=== PATIENT | male | born 1965 | race Caucasian/White ===

== ENCOUNTER 2020-10-26 16:32 | Inpatient (IN) ==
[2020-10-26] MEDS ORDERED: POLYETHYLENE (MIRALAX) 17 GM PACK PO PRN (17:08)
[2020-10-26] MEDS ORDERED: ACETAMINOPHEN 325 MG TAB PO PRN (17:08)
[2020-10-26] MEDS ORDERED: PATIENT'S ALLERGY INFO NEEDS ENTERED SCH (17:45)
[2020-10-26 18:50] LABS: Basophils # (auto) 0.07 K/uL (0-0.2); Basophils % (auto) 0.7 %; Eosinophils # (auto) 0.26 K/uL (0-0.5); Eosinophils % (auto) 2.5 %; Hematocrit (blood only) 37.5 % (42-52); Hemoglobin 12.3 g/dL (14.0-18.0); Immature Granulocytes # (auto) 0.04 K/uL (0.00-0.02); Immature Granulocytes % (auto) 0.4 %; Lymphocytes # (auto) 3.11 K/uL (1.2-3.4); Lymphocytes % (auto) 29.3 %; Mean Corpuscular Hemoglobin 30.1 pg (25-34); Mean Corpuscular Hgb Conc 32.8 g/dL (32-36); Mean Corpuscular Volume 91.7 fL (80-100); Mean Platelet Volume 9.4 fL (7.4-10.4); Monocytes # (auto) 1.04 K/uL (0.11-0.59); Monocytes % (auto) 9.8 %; Neutrophils # (auto) 6.08 K/uL (1.4-6.5); Neutrophils % (auto) 57.3 %; Platelet Count 257 K/uL (130-400); RDW Coefficient of Variation 13.6 % (11.5-14.5); RDW Standard Deviation 45.1 fL (36.4-46.3); Red Blood Count 4.09 M/uL (4.7-6.1)
--- NOTE | 2020-10-26 18:58 | History & Physical Report ---
Date of Service October 26, 2020 Assessment & Plan (1) Osteomyelitis of great toe of right foot: Septic arthritis Right 1st MTP Pt is 55 y/o M with PMH HTN, dyslipidemia, gout, obesity, alcohol use presented to [facility] as direct admission for right great toe edema and erythema x3 weeks, found to have osteomyelitis, septic arthritis. Treated with Keflex and Doxycycline x 2 weeks. Denies fever/chills,N/V, discharge. Outpatient CT right foot with contrast: findings consistent with osteomyelitis o f the first metatarsal and hallux proximal phalanx, with septic arthritis of first MTP joint and a small adjacent abscess Pt afebrile, P: 106, BP: 160/92, R: 22, 97% on RA. No leukocytosis -Blood cultures pending -Zosyn, daptomycin -MRSA swab -IVF -Ortho consult -CBC, BMP in am -Outpatient images being pushed to [facility] radiology (2) HTN (hypertension): -Continue losartan (3) Dyslipidemia: -Continue fenofibrate (4) Alcohol use: Reports drinks 5 beers daily. Last drink 1500 on 10/26/2020. Denies history of alcohol withdrawal -Monitor for alcohol withdrawal -Alcohol withdrawal protocol with gabapentin -Thiamine, folic acid, multivitamin daily (5) Gout: -Continue allopurinol DVT Prophylaxis -SCDs Follows with Lili Keating PA-C for routine care Pt was seen and care coordinated with Dr Mayberry. See addendum Admission and Anticipated Discharge Date Admission Date: October 26, 2020 History of Present Illness Chief Complaint: Right great toe edema Primary Care Provider: Lili Keating PA-C Pt is 55 y/o M with PMH HTN, dyslipidemia, gout, obesity, alcohol use presented to [facility] as direct admission for right great toe edema and erythema x3 weeks. Has been following up outpatient with PCP for right great toe edema with edema extending to right leg. He was initially prescribed Keflex however did not take. Has been taking Keflex and doxycycline for the past 2 weeks. Initial x-ray of right foot on 10/16/2020 with no bony changes of osteomyelitis, no soft tissue gas. Patient reports some decreased edema and erythema to toe and leg. Denies any drainage or discharge. Reports had a fall onto right foot approximately one month ago but denies other injury or open wounds. Followed up with PCP today and had CT right foot with contrast with findings consistent with osteomyelitis of the first metatarsal and hallux proximal phalanx, with septic arthritis of first MTP joint and a small adjacent abscess. Drinks 5 beers a day. Last drink 3:00PM today. Denies history alcohol withdrawal. Denies fever/chills, diaphoresis, N/V/D/C, ESTEBAN, dizziness, vision changes, neck pain, CP, SOB, orthopnea, palpitations, cough, sore throat, choking, otalgia, rhinorrhea, abdominal pain, paresthesias, weakness, extremity weakness, other extremity edema, other rashes, urinary symptoms. Allergies Allergy/AdvReac Type Severity Reaction Status Date / Time Sulfa (Sulfonamide Allergy Rash Verified 10/26/20 18:23 Antibiotics) Home Medications Medication Instructions Recorded Confirmed Type allopurinol 300 mg PO DAILY 10/26/20 10/26/20 History doxycycline hyclate 100 mg PO BID 10/26/20 10/26/20 History fenofibrate nanocrystallized 145 mg PO DAILY 10/26/20 10/26/20 History losartan 50 mg PO DAILY 10/26/20 10/26/20 History Past Med/Surg History Medical History (Updated 10/26/20 @ 19:41 by Ariana Osborne PA-C) Alcohol use Dyslipidemia Gout HTN (hypertension) Obesity Surgical History (Updated 10/26/20 @ 19:36 by Ariana Osborne PA-C) History of cataract surgery Hx of LASIK Family History (Updated 10/26/20 @ 19:37 by Ariana Osborne PA-C) Grandfather (Maternal) Lung cancer Grandmother (Paternal) Diabetes Father Stroke Social History (Updated 10/26/20 @ 19:37 by Ariana Osborne PA-C) Smoking Status: Never smoker Tobacco Type: Smokeless Tobacco (Dip or Chew) Second Hand Exposure: No; Do You Dip or Chew Tobacco: Yes; Tobacco Cessation Education Requested by Patient: No Hx Alcohol Use: Yes (5 beers a day) Alcohol type: beer Hx Substance Use: No Preferred Language: Belarusian Communication Ability: Effective Global Chief Experience Officer Required: No Beliefs That Will Affect Care: None Current Living Situation: Alone Other Information That Helps Us Care for You: No Feels Safe at Home: Yes Safety Concerns: Feels Safe At This Time Review of Systems Review of Systems: All systems reviewed & are unremarkable except as noted in HPI & below Physical Exam Physical Exam: General: no distress, obese Head: normocephalic, atraumatic Eyes: conjunctiva non-injected, anicteric ENT: normal inspection external ears, nose, mucous membranes moist Neck: supple, trachea midline Lungs: clear, no respiratory distress, no wheezing/rhonchi/rales CV: RRR, no murmur Abd: protuberant, normal BS, soft, non-tender Ext: RLE: +edema, +erythema and edema right foot, greatest over right great toe, medial aspect toe with eschar without discharge, no significant tenderness to palpation, LLE without edema. sensation to light touch intact Neuro: A&O x 3, no focal deficits noted, normal affect Skin: warm, dry Results & Data Results & Data ([facility]) Vital Signs (Past 12 Hours) Vital Signs Temp Pulse Resp BP Pulse Ox 10/26/20 18:32 36.9 C 106 H 22 160/92 H 97 Laboratory Results Short CBC 10/26/20 Range/Units 18:13 WBC 10.60 (4.8-10.8) K/uL Hgb 12.3 L (14.0-18.0) g/dL Hct 37.5 L (42-52) % Plt Count 257 (130-400) K/uL BMP 10/26/20 18:13 Sodium 138 Potassium 3.6 Chloride 105 Carbon Dioxide 27 BUN 13 Creatinine 0.82 Glucose 93 Calcium 9.1 Liver Function 10/26/20 Range/Units 18:13 Total Bilirubin 0.4 (0.2-1) mg/dl AST 18 (15-37) U/L ALT 25 (12-78) U/L Alkaline Phosphatase 107 (45-117) U/L Albumin 3.2 L (3.4-5.0) gm/dl ECG Rate (beats per minute): 106 Rhythm: sinus tachycardia Code Status & VTE Plan VTE Prophylaxis Plan VTE Prophylaxis will be ordered: Yes Supervising Physician Co-Signing Physician Notes Care coordinated with Ariana Osborne PA-C. Agree with above note. Patient seen and examined. Please refer to her notes for full details. Vital signs reviewed. Physical exam: General exam: Alert and oriented. Not in acute distress. CVS: S1 and S2 heard, regular rate and rhythm, no murmurs. RS: Clear to auscultation, no wheezing or crackles. ABD: Soft, bowel sounds present, nontender, no distention. CRITICAL CARE UNIT MANAGER: Nonfocal. EXT: No edema, no erythema. Labs: Reviewed. Assessment and plan: 55M with hx of HTN , Gout, alcoholism was sent in because of failed out patinet treatment of right great toe infection aftr falling on it about a month ago. Was getting antibiotics bit Ct scan shwoing osteomyelitis and small abscess. right Great toe infection failed out patient treatment ct scan showing osteomyelitis of the first metatarsal and hallux proximal phalanx with septic arthritis of 1st MTP joint with adjacent abscess started on iv daptomcyin and zosyn ortho consult alcoholism monitor for withdrawal gabapentin and ativan protocol. Other diagnosis and plan of care as per . ANNA Greene MD.
[2020-10-26 19:04] LABS: INR 1.1 (0.9-1.1); Partial Thromboplastin Time 26.3 Seconds (21.0-31.0); Prothrombin Time 10.9 Seconds (9.0-12.0)
[2020-10-26 19:06] LABS: Albumin Level 3.2 gm/dl (3.4-5.0); BUN Creatinine Ratio 16.1 (10-20); Calcium 9.1 mg/dl (8.5-10.1); Est GFR (African American) 113.8 ml/min; Est GFR (Non-African American) 98.2 ml/min; Magnesium 1.8 mg/dl (1.8-2.4); Potassium 3.6 mmol/L (3.5-5.1)
[2020-10-26 19:09] LABS: Albumin Globulin Ratio 0.7 (0.9-2); Bilirubin,Total 0.4 mg/dl (0.2-1); Globulin 4.9 gm/dl (2.5-4.0); Total Protein 8.1 gm/dl (6.4-8.2)
[2020-10-26] MEDS ORDERED: GABAPENTIN 600 MG TAB PO ONE (19:14)
[2020-10-26] MEDS ORDERED: LORazepam 1 MG/2 ML VIAL IV PRN (19:14)
[2020-10-26] MEDS ORDERED: GABAPENTIN 1200MG ALCOHOL WITHDRAWAL LOAD PO STA (19:14)
[2020-10-26] MEDS ORDERED: PIPERACILL/TAZOBAC CONSULT ACTIVE PRN (19:20)
[2020-10-26] MEDS ORDERED: CONSULT PHARMACY STA (19:20)
[2020-10-26] MEDS ORDERED: SODIUM CHLORIDE 0.9% 1000ML 1,000 ML IV SCH (19:30)
[2020-10-26] MEDS ORDERED: PIPERACILLIN/TAZOBACTAM 4.5 GM in DEXTROSE 5% 100 ML IV ONE (19:45)
[2020-10-26] MEDS ORDERED: THIAMINE HCL 100 MG TAB PO SCH (20:00)
[2020-10-26] MEDS: DAPTOmycin 575 MG in SYRINGE 0 ML IV SCH (20:42)
[2020-10-26] MEDS: FOLIC ACID 1 MG TAB PO SCH (21:20)
[2020-10-26] MEDS ORDERED: THIAMINE HCL 100 MG in SYRINGE 9 ML IV ONE (21:30)
[2020-10-26] MEDS: PIPERACILLIN/TAZOBACTAM 4.5 GM in DEXTROSE 5% 100 ML IV SCH (23:10)
[2020-10-27] MEDS: GABAPENTIN 600 MG TAB PO SCH ×3 (05:26→21:03)
[2020-10-27 07:14] LABS: Hematocrit (blood only) 36.8 % (42-52); Hemoglobin 12.3 g/dL (14.0-18.0); Mean Corpuscular Hemoglobin 30.8 pg (25-34); Mean Corpuscular Hgb Conc 33.4 g/dL (32-36); Mean Corpuscular Volume 92.2 fL (80-100); Mean Platelet Volume 9.3 fL (7.4-10.4); Platelet Count 231 K/uL (130-400); RDW Coefficient of Variation 13.7 % (11.5-14.5); RDW Standard Deviation 46.3 fL (36.4-46.3); Red Blood Count 3.99 M/uL (4.7-6.1); White Blood Count 6.87 K/uL (4.8-10.8)
[2020-10-27 07:43] LABS: BUN Creatinine Ratio 11.3 (10-20); Calcium 8.3 mg/dl (8.5-10.1); Creatinine Clr Calc Pharmacy 126.9 ml/min; Est GFR (African American) 111.6 ml/min; Est GFR (Non-African American) 96.3 ml/min; Magnesium 1.9 mg/dl (1.8-2.4); Potassium 3.8 mmol/L (3.5-5.1)
[2020-10-27 07:44] LABS: Phosphorus 2.6 mg/dl (2.5-4.9)
[2020-10-27] MEDS: PIPERACILLIN/TAZOBACTAM 4.5 GM in DEXTROSE 5% 100 ML IV SCH ×2 (07:57→16:03)
[2020-10-27] MEDS: allopurinoL 300 MG TAB PO SCH (09:03)
[2020-10-27] MEDS: FENOFIBRATE NANOCRYSTALLIZED 145 MG TABLET PO SCH (09:04)
[2020-10-27] MEDS: FOLIC ACID 1 MG TAB PO SCH (09:04)
[2020-10-27] MEDS: MULTIVITAMIN TAB PO SCH (09:04)
[2020-10-27] MEDS: LOSARTAN POTASSIUM 50 MG TAB PO SCH (09:04)
[2020-10-27] MEDS: THIAMINE HCL 100 MG TAB PO SCH (09:05)
--- NOTE | 2020-10-27 10:08 | Orthopedic Consultation ---
Date of Service October 27, 2020 Assessment & Plan (1) Injury of right great toe: I went over the CT scan personally and with the radiologist. Given his history, I do not think that this is an osteomyelitis with an infected joint. I think he has some destruction of the of the joint from multiple gouty attacks and the trauma from the fall has caused the dorsal subluxation of the phalanx and the fractures that we see on the CT scan around the metatarsal head. There is some swelling in the area. He is currently afebrile and his white count is negative. Overall he says it is getting better. The radiologist agrees that there is no other study that would definitively rule out osteomyelitis at this time. I think it is reasonable to treat this with some antibiotics in case there is an underlying infection but I think it would be too aggressive to do an amputation at this time. The most likely diagnosis is a trauma to the foot from a hyperextension and the fractures of the metatarsal head that we see on the CT scan. He can be weightbearing as tolerated. History of Present Illness Reason for Consultation: Right foot pain. Requesting Physician: . Attending Physician: Steven Kamara MD Demetri is a pleasant 55-year-old male who has a history of multiple gout attacks to his right great toe. He is on allopurinol for that. He was in his normal state of health until a month ago when he tripped and fell on his right flexed knee. When he fell onto his flexed knee he hyperextended the great toe on his right foot. He had significant pain and swelling from that. He saw his primary care physician. There was some redness around the area. He started him on some Keflex. Unfortunately continue to have some redness. He ordered a CT scanning of the right foot and it came back with a questionable osteomyelitis and possible septic joint. He was admitted to the hospital for IV antibiotics and evaluation. Orthopedics was consulted to evaluate and treat. He is not a diabetic and he has never had an ulceration around his right foot and denies any breakage of the skin.. Allergies Allergy/AdvReac Type Severity Reaction Status Date / Time Sulfa (Sulfonamide Allergy Rash Verified 10/26/20 18:23 Antibiotics) Home Medications Medication Instructions Recorded Confirmed Type allopurinol 300 mg PO DAILY 10/26/20 10/26/20 History doxycycline hyclate 100 mg PO BID 10/26/20 10/26/20 History fenofibrate nanocrystallized 145 mg PO DAILY 10/26/20 10/26/20 History losartan 50 mg PO DAILY 10/26/20 10/26/20 History Past Med/Surg History Medical History Alcohol use Dyslipidemia Gout HTN (hypertension) Obesity Surgical History History of cataract surgery Hx of LASIK Family History Grandfather (Maternal) Lung cancer Grandmother (Paternal) Diabetes Father Stroke Social History Smoking Status: Never smoker Tobacco Type: Smokeless Tobacco (Dip or Chew) Second Hand Exposure: No; Do You Dip or Chew Tobacco: Yes; Tobacco Cessation Education Requested by Patient: No Hx Alcohol Use: Yes (5 beers a day) Alcohol type: beer Hx Substance Use: No Preferred Language: Iraqi Communication Ability: Effective Rn Sane Required: No Beliefs That Will Affect Care: None Current Living Situation: Alone Other Information That Helps Us Care for You: No Feels Safe at Home: Yes Safety Concerns: Feels Safe At This Time Review of Systems All systems reviewed & are unremarkable except as noted in HPI & below. Physical Exam On physical examination the right foot, there is a lot of swelling mostly surrounded around the MTP joint of the right great toe. He has minimal pain. There is no gross deformity. There is some erythema around the area and a little bit of scarring and breaking of the skin laterally. I will see any ulcerations.. Constitutional WD/WN, vitals as above Eyes PERRL, conjunctivae normal, anicteric sclerae ENMT external ear and nose normal, oropharynx normal Neck trachea midline, no thyromegaly Respiratory normal respiratory effort Cardiovascular RRR, no murmur, no edema Gastrointestinal (Abdomen) normal bowel sounds, soft, nontender, no hepatosplenomegaly Psychiatric A+Ox3, euthymic affect Results & Data Results & Data Laboratory Results . Diagnostic Findings CT scan was reviewed by myself, and I went over a person with the radiologist. Does show some fractures around the metatarsal head of the great toe. There is a dorsal subluxation of the proximal phalanx on the great toe. There is a little bit of periostitis which can be diagnostic for healing of fracture. There is also swelling around the area. It is difficult to say whether this is just joint fluid or whether it is infection. That cannot be determined by the CT scan.. PG Care Time/CCT Total # of Minutes Spent Total Time Spent with Patient: Total time spent is greater than 50% in coordination of care (as documented) at patient's floor/unit and/or counseling patient: Coding Level of Care Code 89251 Inpt Consult Level 4 Diagnoses Injury of right great toe S99.921A
--- NOTE | 2020-10-27 15:25 | Hospitalist Progress Note ---
Date of Service October 27, 2020 Assessment & Plan (1) Osteomyelitis of great toe of right foot: Pt is 55 y/o M with PMH HTN, dyslipidemia, gout, obesity, alcohol use presented to [facility] as direct admission for right great toe edema and erythema x3 weeks, found to have osteomyelitis, septic arthritis. Treated with Keflex and Doxycycline x 2 weeks. Denies fever/chills,N/V, discharge. Right Great Toe Injury Possible multiple gouty attacks Can note rule out Septic arthritis Right 1st MTP/Osteomyelitis Trauma to foot due to hyperextension and the fractures of the metatarsal head Outpatient CT right foot with contrast: findings consistent with osteomyelitis of the first metatarsal and hallux proximal phalanx, with septic arthritis of first MTP joint and a small adjacent abscess Weightbearing as tolerated Camboot/Walking Splint to be arranged Continue empiric antibiotics Appreciate orthopedics input No plan for surgery currently PT OT eval (2) HTN (hypertension): Continue losartan (3) Dyslipidemia: Continue fenofibrate (4) Alcohol use: Monitor for alcohol withdrawal Continue gabapentin protocol Continue Thiamine, folic acid, multivitamin daily (5) Gout: Continue allopurinol DVT Px: Lovenox SQ Admission and Anticipated Discharge Date Admission Date: October 26, 2020 Subjective Patient is seen and examined at bedside States having right great toe swelling Denies any significant pain Also denies any chest pain, shortness of breath, dizziness, nausea, abdominal pain No signs of alcohol withdrawal Review of Systems 2 Review of Systems: All systems reviewed & are unremarkable except as noted in HPI & below Physical Exam Physical Exam: Physical Exam: Vitals signs as noted above General Appearance:Morbidly Obese, no apparent distress Head: normocephalic, Atraumatic Eyes: normal inspection, EOMI Neck: supple, Trachea midline Respiratory/Chest: Normal breath sounds, CTA, No accessory muscle use Cardiovascular: S1, S2, No murmur Abdomen/GI:Soft, Non tender, Bowel sounds present Extremities/Musculoskeletal:normal inspection, no edema, Right foot edema, erythema, +eschar of great toe Neurologic/Psych:AAOX3, grossly no focal neurological deficits Skin: normal color, warm Results & Data Results & Data ([facility]) Vital Signs (Past 12 Hours) Vital Signs Temp Pulse Pulse Resp BP Pulse Ox 10/27/20 12:00 37.0 C 80 16 127/83 95 10/27/20 08:00 36.8 C 88 18 127/72 99 10/27/20 07:14 86 10/27/20 03:43 36.9 C 96 H 18 127/73 97 Laboratory Results Short CBC 10/26/20 10/27/20 Range/Units 18:13 06:51 WBC 10.60 6.87 (4.8-10.8) K/uL Hgb 12.3 L 12.3 L (14.0-18.0) g/dL Hct 37.5 L 36.8 L (42-52) % Plt Count 257 231 (130-400) K/uL BMP 10/26/20 10/27/20 18:13 06:51 Sodium 138 139 Potassium 3.6 3.8 Chloride 105 107 Carbon Dioxide 27 27 BUN 13 10 Creatinine 0.82 0.86 Glucose 93 134 H Calcium 9.1 8.3 L Liver Function 10/26/20 Range/Units 18:13 Total Bilirubin 0.4 (0.2-1) mg/dl AST 18 (15-37) U/L ALT 25 (12-78) U/L Alkaline Phosphatase 107 (45-117) U/L Albumin 3.2 L (3.4-5.0) gm/dl
[2020-10-27] MEDS: DAPTOmycin 575 MG in SYRINGE 0 ML IV SCH (19:56)
[2020-10-28] MEDS: PIPERACILLIN/TAZOBACTAM 4.5 GM in DEXTROSE 5% 100 ML IV SCH ×2 (00:12→07:50)
[2020-10-28] MEDS: GABAPENTIN 600 MG TAB PO SCH (06:03)
--- NOTE | 2020-10-28 06:24 | Electrocardiogram Report ---
Test Reason : Blood Pressure : / mmHG Vent. Rate : 106 BPM Atrial Rate : 106 BPM P-R Int : 128 ms QRS Dur : 090 ms QT Int : 354 ms P-R-T Axes : 045 014 -22 degrees QTc Int : 470 ms Sinus tachycardia Nonspecific T wave abnormality No previous ECGs available Confirmed by Maxim Cantu ([id number]) on 10/28/2020 6:23:48 AM Referred By: Donald Mayberry Confirmed By:Maxim Cantu
[2020-10-28 06:53] LABS: Hematocrit (blood only) 38.2 % (42-52); Hemoglobin 12.6 g/dL (14.0-18.0); Mean Corpuscular Hemoglobin 30.2 pg (25-34); Mean Corpuscular Volume 91.6 fL (80-100); Mean Platelet Volume 9.2 fL (7.4-10.4); Platelet Count 207 K/uL (130-400); RDW Coefficient of Variation 13.8 % (11.5-14.5); RDW Standard Deviation 45.3 fL (36.4-46.3); Red Blood Count 4.17 M/uL (4.7-6.1)
[2020-10-28 07:21] LABS: BUN Creatinine Ratio 10.1 (10-20); Calcium 9.2 mg/dl (8.5-10.1); Creatinine Clr Calc Pharmacy 114.7 ml/min; Est GFR (African American) 102.6 ml/min; Est GFR (Non-African American) 88.5 ml/min; Potassium 3.6 mmol/L (3.5-5.1)
--- NOTE | 2020-10-28 07:47 | Orthopedic Progress Note ---
Date of Service October 28, 2020 Assessment & Plan (1) Injury of right great toe: Overall he continues to improve. I think that the toe injury is doing more from a trauma and I do not necessarily believe that there is an osteomyelitis. I went over the CT scan personally with the radiologist. Denisa payan there is no way to determine with certainty whether there is a septic joint or whether this is a trauma, but given his history it is likely a trauma. The swelling is going down. I feel that he can be discharged when medically ready. He will likely need some oral antibiotics to prevent any infection from the fracture blister that is on the tibial aspect of the great toe. He needs to keep that covered and used continue treatment with that. He can be weightbearing as tolerated in a hard sole shoe. He also has a work boot that he has been using up until the time he came to the hospital. He needs to continue working. 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 I talked to him about things to look out for in the coming weeks. We talked about signs of increasing swelling and increasing redness around the great toe. All of his lab work has looked okay. His glucose levels are normal. His blood cultures have been negative. He is orthopedically stable for discharge. Full orthopedic discharge instructions were placed in the discharge summary. I will see him in my office in 2 weeks, we will get some x-rays and will make sure that he is improving. If he is not improving he can certainly call my office sooner. Joshua Mosquera was seen and examined at bedside this morning. Overall he is doing fairly well. He is not having much pain in the right foot. The swelling is going down some. He does have the fracture blister on the tibial aspect of the MTP joint. That is covered. He has no new complaints.. Review of Systems All systems reviewed & are unremarkable except as noted in HPI & below. Physical Exam On physical examination of the left foot, the swelling is going down a little bit. The redness is subsiding some. He does have a fracture blister on the tibial aspect of his right foot. That needs to continue to be covered and treated.. Results & Data Results & Data Laboratory Results . Diagnostic Findings . PG Care Time/CCT Total # of Minutes Spent Total Time Spent with Patient: Total time spent is greater than 50% in coordination of care (as documented) at patient's floor/unit and/or counseling patient: Coding Level of Care Code 79755 Subseq Hosp Care Lvl 2 Diagnoses Injury of right great toe S99.921A
[2020-10-28] MEDS: allopurinoL 300 MG TAB PO SCH (08:20)
[2020-10-28] MEDS: FENOFIBRATE NANOCRYSTALLIZED 145 MG TABLET PO SCH (08:20)
[2020-10-28] MEDS: FOLIC ACID 1 MG TAB PO SCH (08:20)
[2020-10-28] MEDS: MULTIVITAMIN TAB PO SCH (08:21)
[2020-10-28] MEDS: THIAMINE HCL 100 MG TAB PO SCH (08:21)
[2020-10-28] MEDS: LOSARTAN POTASSIUM 50 MG TAB PO SCH (08:21)
[2020-10-28] MEDS ORDERED: ENOXAPARIN INJ 40 MG/0.4 ML SYR SQ SCH (09:00)
--- NOTE | 2020-10-28 12:21 | Hospitalist Progress Note ---
Date of Service October 28, 2020 Assessment & Plan (1) Osteomyelitis of great toe of right foot: Pt is 55 y/o M with PMH HTN, dyslipidemia, gout, obesity, alcohol use presented to [facility] as direct admission for right great toe edema and erythema x3 weeks, found to have osteomyelitis, septic arthritis. Treated with Keflex and Doxycycline x 2 weeks. Denies fever/chills,N/V, discharge. Right Great Toe Injury Possible multiple gouty attacks Can note rule out Septic arthritis Right 1st MTP/Osteomyelitis Trauma to foot due to hyperextension and the fractures of the metatarsal head Outpatient CT right foot with contrast: findings consistent with osteomyelitis of the first metatarsal and hallux proximal phalanx, with septic arthritis of first MTP joint and a small adjacent abscess Weightbearing as tolerated Camboot/Walking Splint Continue >>Dapto, Zosyn >>Transition to PO antibiotics Appreciate orthopedics input PT OT eval Patient prefers to avoid any surgery for now Needs follow-up with orthopedics upon discharge in 2 weeks with repeat x-rays Continue wound care (2) HTN (hypertension): Continue losartan (3) Dyslipidemia: Continue fenofibrate (4) Alcohol use: Monitor for alcohol withdrawal Continue gabapentin protocol Continue Thiamine, folic acid, multivitamin daily (5) Gout: Continue allopurinol DVT Px: Lovenox SQ Admission and Anticipated Discharge Date Admission Date: October 26, 2020 Subjective Patient is seen and examined at bedside Noted some drainage from Right great toe wound Denies any pain Also denies any chest pain, shortness of breath, dizziness, nausea, abdominal pain No signs of alcohol withdrawal Offers no other complaints Review of Systems Review of Systems: All systems reviewed & are unremarkable except as noted in HPI & below Physical Exam Physical Exam: Physical Exam: Vitals signs as noted above General Appearance:Morbidly Obese, no apparent distress Head: normocephalic, Atraumatic Eyes: normal inspection, EOMI Neck: supple, Trachea midline Respiratory/Chest: Normal breath sounds, CTA, No accessory muscle use Cardiovascular: S1, S2, No murmur Abdomen/GI:Soft, Non tender, Bowel sounds present Extremities/Musculoskeletal:normal inspection, no edema, Right foot edema, erythema, +eschar of great toe Neurologic/Psych:AAOX3, grossly no focal neurological deficits Skin: normal color, warm Results & Data Results & Data ([facility]) Vital Signs (Past 12 Hours) Vital Signs Temp Pulse Pulse Resp BP Pulse Ox 10/28/20 11:14 36.5 C 96 H 18 138/61 95 10/28/20 08:06 36.5 C 86 16 132/79 96 10/28/20 07:27 86 10/28/20 04:56 63 10/28/20 03:59 37.0 C 89 18 122/79 95 Laboratory Results Short CBC 10/28/20 Range/Units 06:33 WBC 6.40 (4.8-10.8) K/uL Hgb 12.6 L (14.0-18.0) g/dL Hct 38.2 L (42-52) % Plt Count 207 (130-400) K/uL BMP 10/28/20 06:33 Sodium 138 Potassium 3.6 Chloride 105 Carbon Dioxide 31 BUN 10 Creatinine 0.95 Glucose 122 H Calcium 9.2
--- NOTE | 2020-10-28 12:29 | Discharge Summary ---
Date of Service October 28, 2020 Admission HPI Per Admitting Provider Pt is 55 y/o M with PMH HTN, dyslipidemia, gout, obesity, alcohol use presented to [facility] as direct admission for right great toe edema and erythema x3 weeks. Has been following up outpatient with PCP for right great toe edema with edema extending to right leg. He was initially prescribed Keflex however did not take. Has been taking Keflex and doxycycline for the past 2 weeks. Initial x- ray of right foot on 10/16/2020 with no bony changes of osteomyelitis, no soft tissue gas. Patient reports some decreased edema and erythema to toe and leg. Denies any drainage or discharge. Reports had a fall onto right foot ap proximately one month ago but denies other injury or open wounds. Followed up with PCP today and had CT right foot with contrast with findings consistent with osteomyelitis of the first metatarsal and hallux proximal phalanx, with septic arthritis of first MTP joint and a small adjacent abscess. Drinks 5 beers a day. Last drink 3:00PM today. Denies history alcohol withdrawal. Denies fever/chills, diaphoresis, N/V/D/C, ESTEBAN, dizziness, vision changes, neck pain, CP, SOB, orthopnea, palpitations, cough, sore throat, choking, otalgia, rhinorrhea, abdominal pain, paresthesias, weakness, extremity weakness, other extremity edema, other rashes, urinary symptoms. Admission Exam Per Admitting Provider Physical Exam Physical Exam: General: no distress, obese Head: normocephalic, atraumatic Eyes: conjunctiva non-injected, anicteric ENT: normal inspection external ears, nose, mucous membranes moist Neck: supple, trachea midline Lungs: clear, no respiratory distress, no wheezing/rhonchi/rales CV: RRR, no murmur Abd: protuberant, normal BS, soft, non-tender Ext: RLE: +edema, +erythema and edema right foot, greatest over right great toe, medial aspect toe with eschar without discharge, no significant tenderness to palpation, LLE without edema. sensation to light touch intact Neuro: A&O x 3, no focal deficits noted, normal affect Skin: warm, dry Principal Diagnosis Right Great Toe Injury/Wound Alcohol use Discharge Data Allergies Allergy/AdvReac Type Severity Reaction Status Date / Time Sulfa (Sulfonamide Allergy Rash Verified 10/26/20 18:23 Antibiotics) Consultations 10/26/20 19:20 Consult Orthopedic Surgery Routine Hospital Course (1) Osteomyelitis of great toe of right foot: Pt is 55 y/o M with PMH HTN, dyslipidemia, gout, obesity, alcohol use presented to [facility] as direct admission for right great toe edema and erythema x3 weeks, found to have osteomyelitis, septic arthritis. Treated with Keflex and Doxycycline x 2 weeks. Denies fever/chills,N/V, discharge. Right Great Toe Injury Possible multiple gouty attacks Can note rule out Septic arthritis Right 1st MTP/Osteomyelitis Trauma to foot due to hyperextension and the fractures of the metatarsal head Outpatient CT right foot with contrast: findings consistent with osteomyelitis of the first metatarsal and hallux proximal phalanx, with septic arthritis of first MTP joint and a small adjacent abscess Weightbearing as tolerated [place]/Walking Splint Continue >>Dapto, Zosyn >>Transition to PO antibiotics Appreciate orthopedics input PT OT eval Orthopedics discussed with Radiology and believe no Osteomyelitis/Septic Jt present currently Patient prefers to avoid any surgery for now Needs follow-up with orthopedics upon discharge in 2 weeks with repeat x-rays Continue wound care (2) HTN (hypertension): Continue losartan (3) Dyslipidemia: Continue fenofibrate (4) Alcohol use: Monitor for alcohol withdrawal Continue gabapentin protocol Continue Thiamine, folic acid, multivitamin daily (5) Gout: Continue allopurinol DVT Px: Lovenox SQ Total Time Total Time Spent Total Time Spent (In Minutes): 45 minutes Total Time Includes: Examination of the Patient, Discharge Planning, Medication Reconciliation, Communication With Other Providers and Other Discharge Plan Discharge Items Patient Disposition: Home - Self-Care Reason For Visit: OSTEOMYELITIS & SEPTIC ARTHRITIS OF TOE Discharge Diagnosis: Right Great Toe Injury/Wound Alcohol use Activity: Per Instructions section Exercise/Sports: Wait until after follow-up appointment Non-emergency contact: Primary Care Provider and Surgeon Call non-emergency contact if: you have any medication questions, your symptoms worsen, your pain is not controlled, your pain is concerning for you, you have a fever, your wound has increased redness, your wound has increased drainage and your wound pain has increased Follow-up/Referrals: Lucien Agosto DO [Physician] - Lili Keating PA-C [Primary Care Provider] - 11/01/20 3:00 pm (Please follow up with Lili Keating PA-C on 11/01/20 at 3:00 pm. Please arrive to the office at 2:45 pm for your appointment. If you are unable to keep this appointment, please call the office to reschedule at [phone].) Diet: Heart Healthy Prabhakar Attending Provider Instructions: Follow-up with your primary care physician Lili Keating PA-C in 1 week Follow-up with your orthopedic surgeon Dr. Agosto in 1-2 weeks Complete the antibiotic course as prescribed Final blood cultures are pending at the time of discharge. Follow-up with your physician for results. Seek immediate medical attention if your symptoms reoccur or worsen Please take all medications as instructed on discharge list below. Please call if you have any questions or problems. You can reach a [facility] hospitalist on duty at [facility] 24 hours a day by calling [phone] [facility] [employer] Provider Instructions: ORTHOPEDIC INSTRUCTIONS Activity Recommendations: Weightbearing as tolerated in the [place] shoe when not working. 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 Dressing Care: Keep the blister on the foot covered while wearing a shoe. Remove the dressing and leave it dry and open to air as much as possible when not working. Showering: Do not soak the wound on the medial aspect of your right foot. Things To Watch For: 1. Drainage from the blister site 2. Increased redness around the great toe. 3. Fever above 102 degrees Fahrenheit. 4. Unusual chest pain or shortness of breath. 5. Call [facility] at with any of the above problems Follow-Up Visit: Follow-up with Dr. Agosto's in 2 weeks He will obtain x-rays and answer any questions. If you have any questions call Pending Studies at Discharge: Yes Studies:: Blood Cultures Stand-Alone Forms: My [facility], Smoking Cessation Medications and DC Order Prescriptions: New amoxicillin-pot clavulanate [Augmentin] 875-125 mg tablet 1 tab PO BID Qty: 20 RF: 0 Continued losartan 50 mg tablet 50 mg PO DAILY RF: 0 allopurinol 300 mg tablet 300 mg PO DAILY RF: 0 fenofibrate nanocrystallized 145 mg tablet 145 mg PO DAILY RF: 0 doxycycline hyclate 100 mg capsule 100 mg PO BID 10 Days Qty: 20 RF: 0 Discharge Orders: Discharge Order (Routine); Ordered 10/28/20 Ordered By: Steven Kamara Admission Data Admit Date/Time: 10/26/20 17:55 Attending Provider: Steven Kamara Admit Provider: Donald Mayberry Primary Care Provider: Lili Keating Other Providers: Lucien Agosto Other Interventions: Discharge Summary Assessment (RN) Last Done: 10/28/20 12:45
[2020-10-29] MEDS ORDERED: GABAPENTIN 600 MG TAB PO SCH
--- NOTE | 2020-10-29 00:20 | Electrocardiogram Report ---
Test Reason : Blood Pressure : / mmHG Vent. Rate : 120 BPM Atrial Rate : 120 BPM P-R Int : 126 ms QRS Dur : 084 ms QT Int : 322 ms P-R-T Axes : 047 038 -16 degrees QTc Int : 455 ms Sinus tachycardia Nonspecific ST and T wave abnormality Abnormal ECG When compared with ECG of 26-OCT-2020 18:54, No significant change was found Confirmed by Maxim Cantu ([id number]) on 10/29/2020 12:19:53 AM Referred By: Donald Mayberry Confirmed By:Maxim Cantu
[2020-10-30] MEDS ORDERED: GABAPENTIN 600 MG TAB PO SCH (12:00)
== END 2020-10-28 13:32 | disposition home or self-care (01) | DRG 540 ==
LOC: SUATTDRO 17:55 → 1E 17:55 → 2S 22:31